=== PATIENT | female | born 1960 | race Caucasian/White ===

== ENCOUNTER → 2018-12-24 | Outpatient (CLI) | payer MEDICARE ==
--- NOTE | 2018-12-24 11:21 | PCVCIMAG ---
EXAM: AORTOILIAC DUPLEX INDICATION: Palpable abdominal fullness. Aortic calcifications. FINDINGS: AORTA: Suprarenal aorta measures maximum diameter of 1.9 cm. There is not a fusiform infrarenal aortic aneurysm. The infrarenal aorta measures maximum diameter of 1.5 cm. No aortic stenosis. RIGHT COMMON ILIAC ARTERY: Maximum diameter is 0.7 cm. No significant stenosis. RIGHT EXTERNAL ILIAC ARTERY: No significant stenosis. LEFT COMMON ILIAC ARTERY: Maximum diameter is 0.6 cm. No significant stenosis. LEFT EXTERNAL ILIAC ARTERY: No significant stenosis. IMPRESSION: No abdominal aortic aneurysm. No aortoiliac stenosis seen. LOC:[id number]
== END | disposition home or self-care (01) ==
LOC: PCVCIMAG 10:11
PROVIDERS: ATTEND Nuclear Medicine Nuclear Cardiology
DX: I70.0 Atherosclerosis of aorta (principal); I72.9 Aneurysm of unspecified site; I10 Essential (primary) hypertension; E78.00 Pure hypercholesterolemia, unspecified; N20.0 Calculus of kidney; R07.89 Other chest pain; M79.604 Pain in right leg; M79.605 Pain in left leg; E78.5 Hyperlipidemia, unspecified; I71.4 Abdominal aortic aneurysm, without rupture; Z88.0 Allergy status to penicillin; Z88.8 Allergy status to other drugs, medicaments and biological substances; Z87.891 Personal history of nicotine dependence; Z79.899 Other long term (current) drug therapy; Z90.710 Acquired absence of both cervix and uterus
CPT/HCPCS: 93978; G0463

== ENCOUNTER → 2019-02-02 | Outpatient (CLI) | payer MEDICARE ==
--- NOTE | 2019-02-02 15:28 | PCVCIMAG ---
APPROVED REPORT Imaging Protocol: Rest Tc-99m/Stress Tc-99m 1 day Study performed: 02/02/2019 11:59:41 Indication: Chest pain, Dyspnea, Pseudoxanthoma Elasticum Patient Location: Out-Patient Stress Nurse: Misty Archer RN, BLAISE Conte Tech:[place]ouard SHAHEEN Oconnor Ht: 5 ft 3 in Wt: 138 lbs BSA: 1.65 m2 HR: 83 bpm BP: 148/75 mmHg BMI: 24.44 Rhythm: Sinus Rhythm Medical History Medical History: Age, Hyperlipidemia, HTN, Former Smoker Medications: Norvasc, Zocor, Ultram, Laura, Prozac Allergies: ASA, PCN Exercise History: Sedentary Resting Data Rest SPECT myocardial perfusion imaging was performed in supine position 45 minutes following the intravenous injection of 11.3 mCi of Tc-99m Sestamibi. Time of rest injection: 1200 Date: 02/02/2019 Administration Route: IV Administration Site: Right AC Pharmacologic Stress Pharmacologic stress test was performed by injecting Regadenoson 0.4 mg IV push over 10-15 seconds immediately followed by the intravenous injection of 36 mCi of Tc-99m Sestamibi. Time of stress injection: 1315 Date: 02/02/2019 Administration Route: IV Administration Site: Right AC Gated Stress SPECT was performed 45 minutes after stress injection. The images were gated to evaluate regional wall motion and calculate left ventricular ejection fraction. Stress Test Details Stress Test: Exercise stress testing was performed using a Ronnie protocol. HRMax Heart Rate (APMHR): 162 bpm Resting HR: 83 bpmTarget HR (85% APMHR): 137 bpm Max HR Achieved: 148 bpm % of APMHR: 91 Recovery HR: 90 bpm BP Resting BP: 148/75 mmHg Max BP: 188/90 mmHg Recovery BP: 140/67 mmHg ECG Resting ECG: Sinus Rhythm Stress ECG: Sinus Tachycardia ST Change: Non-ischemic Arrhythmia: None Recovery ECG: Sinus Rhythm Clinical Reason for Termination: Maximal effort, Fatigue, Dyspnea Stress Symptoms: Dyspnea Symptoms resolved during recovery. Study Quality Study: Good Study Data Post stress, the left ventricular ejection was 84%.. SSS: 0 SRS: 0 SDS: 0 TID = 0.75. Perfusion Normal left ventricular perfusion. Normal perfusion on both the stress and rest images. Wall Motion Normal left ventricular wall motion. Nuclear Conclusion ECG Findings: negative for ischemia Clinical Findings: negative for ischemia Nuclear Findings: negative for ischemia Exercise Capacity: normal Left Ventricular Function: normal Risk Study: low This study is of low probability for inducible ischemia or prior infarct. Normal global and segmental LV systolic function.
--- NOTE | 2019-02-02 17:28 | PCVCIMAG ---
APPROVED REPORT Study performed: 02/02/2019 16:26:26 EXAM: Comprehensive 2D, Doppler, and color-flow Echocardiogram Patient Location: Echo lab Status: routine BSA: 1.62 HR: 77 bpmBP: 150/80 mmHg Rhythm: NSR Other Information Study Quality: Good Risk Factors: Cardiac Risk Factors: HTN, Hyperlipidemia Indications CAD PAD 2D Dimensions IVSd: 9.45 (7-11mm)LVOT Diam: 17.27 (18-24mm) LVDd: 39.71 mm PWd: 8.94 (7-11mm)Ascending Ao: 32.07 (22-36mm) LVDs: 25.75 (25-40mm) Left Atrium: 36.08 (27-40mm) Aortic Root: 33.21 mm LV Single Plane 4CH: 63.25 % LV Single Plane 2CH: 67.16 % Biplane EF: 67.3 % Volumes Left Atrial Volume (Systole) Single Plane 4CH: 22.76 mLSingle Plane 2CH: 23.35 mL LA ESV Index: 15.00 mL/m2 Aortic Valve AoV Peak Yayo.: 1.03 m/s AO Peak Gr.: 4.20 mmHgLVOT Max P.99 mmHg LVOT Max V: 1.00 m/s CHARISSA Vmax: 2.28 cm2 Mitral Valve E/A Ratio: 0.6 MV Decel. Time: 226.63 ms MV E Max Yayo.: 0.59 m/s MV A Yayo.: 1.01 m/s TDI E/Lateral E': 8.43E/Medial E': 11.80 Medial E' Yayo.: 0.05 m/s Lateral E' Yayo.: 0.07 m/s Pulmonary Valve PV Peak Gr.: 2.34 mmHg Pulmonary Vein P Vein S: 0.63 m/sP Vein A: 0.44 m/s P Vein D: 0.31 m/sP Vein A Dur.: 79.6 msec P Vein S/D Ratio: 2.03 Tricuspid Valve TR Peak Yayo.: 1.88 m/s TR Peak Gr.: 14.16 mmHg Left Ventricle The left ventricle is normal size. There is normal LV segmental wall motion. Mild concentric left ventricular hypertrophy. Left ventricular systolic function is normal. The left ventricular ejection fraction is within the normal range. LVEF is 55-60%. The left ventricular diastolic function is normal. Right Ventricle The right ventricle is normal size. The right ventricular systolic function is normal. Atria The left atrium size is normal. The right atrium size is normal. Aortic Valve The aortic valve is normal in structure. No aortic regurgitation is present. There is no aortic valvular stenosis. Mitral Valve The mitral valve is normal in structure. There is no mitral valve regurgitation noted. No evidence of mitral valve stenosis. Tricuspid Valve The tricuspid valve is normal in structure. Trace tricuspid regurgitation. Pulmonic Valve The pulmonary valve is normal in structure. There is no pulmonic valvular regurgitation. Great Vessels The aortic root is normal in size. IVC is normal in size and collapses >50% with inspiration. Pericardium There is no pericardial effusion. <Conclusion> The left ventricle is normal size. Mild concentric left ventricular hypertrophy. LVEF is 55-60%. The left ventricular diastolic function is normal. The left atrium size is normal. The aortic valve is normal in structure. There is no mitral valve regurgitation noted. Trace tricuspid regurgitation. The aortic root is normal in size. There is no pericardial effusion.
--- NOTE | 2019-02-02 17:45 | PCVCIMAG ---
EXAM: BILATERAL LOWER EXTREMITY ARTERIAL DUPLEX INDICATION: Peripheral Arterial Disease. Leg pain. FINDINGS: Right Leg: Satisfactory arterial waveforms throughout the common/profunda/superficial femoral, popliteal, anterior tibial, peroneal, and posterior tibial arteries. No flow limiting stenosis seen. Left Leg: Common femoral profunda femoral arteries are patent. Complete occlusion in the mid and distal [place] superficial femoral artery. Popliteal artery refills and is patent throughout. The anterior tibial, peroneal, and posterior tibial arteries are patent. IMPRESSION: No flow limiting stenosis in the right lower extremity. Complete occlusion mid/distal [place] left superficial femoral artery. LOC:OFFICE
== END | disposition home or self-care (01) ==
LOC: PCVCIMAG 10:44
PROVIDERS: ATTEND Internal Medicine Cardiovascular Disease
DX: I73.9 Peripheral vascular disease, unspecified (principal); I25.10 Atherosclerotic heart disease of native coronary artery without angina pectoris; I10 Essential (primary) hypertension; E78.00 Pure hypercholesterolemia, unspecified; Z87.891 Personal history of nicotine dependence
CPT/HCPCS: 36415; 78452; 80061; 93017; 93306; 93925; A9500; G0463

== ENCOUNTER → 2019-03-09 | Outpatient (CLI) | payer MEDICARE ==
--- NOTE | 2019-03-09 11:13 | PCVCIMAG ---
EXAM: LEFT LOWER EXTREMITY ARTERIAL DUPLEX INDICATION: Peripheral Arterial Disease. Leg pain. FINDINGS: Left Leg: Common femoral profunda femoral arteries are patent. Superficial femoral artery and popliteal artery are patent. The anterior tibial and peroneal arteries are patent. Occlusion throughout the posterior tibial artery. IMPRESSION: Occlusion throughout the left posterior tibial artery. Otherwise no flow limiting stenosis in the left lower extremity. Previous site of intervention throughout the left superficial femoral artery remain patent. LOC:[id number]
== END | disposition home or self-care (01) ==
LOC: PCVCIMAG 08:43
PROVIDERS: ATTEND Nuclear Medicine Nuclear Cardiology
DX: I70.202 Unspecified atherosclerosis of native arteries of extremities, left leg (principal); Z88.0 Allergy status to penicillin; Z88.6 Allergy status to analgesic agent
CPT/HCPCS: 93926; G0463

== ENCOUNTER → 2019-05-26 | Outpatient (CLI) | payer MEDICARE ==
--- NOTE | 2019-05-26 18:38 | PCVCIMAG ---
EXAM: BILATERAL LOWER EXTREMITY ARTERIAL DUPLEX INDICATION: Peripheral Arterial Disease. Leg pain. FINDINGS: Right Leg: Common femoral and profunda femoral arteries are patent. 50% stenosis distal [place] superficial femoral artery. Popliteal artery is patent. Anterior tibial and peroneal arteries are patent. Posterior tibial arteries occluded. Left Leg: Common femoral and profunda femoral arteries are patent. Superficial femoral artery and popliteal artery are patent. Occlusion mid/distal posterior tibial artery. The anterior tibial and peroneal arteries are patent. IMPRESSION: 50% stenosis distal [place] right superficial femoral artery. Left superficial femoral and popliteal arteries are patent. Unchanged occlusion of the right and left posterior tibial arteries. LOC:[id number]
--- NOTE | 2019-05-26 18:39 | PCVCIMAG ---
EXAM: BILATERAL CAROTID DUPLEX INDICATION: Carotid Occlusive Disease. FINDINGS: Doppler Measurements (centimeters per second): RIGHT: Peak CCA-49, Peak ECA-69, Diastolic ICA-22, Peak ICA-7, ICA/CCA Ratio-1.4. LEFT: Peak CCA-54, Peak ECA-82, Diastolic ICA-28, Peak ICA-73, ICA/CCA Ratio-1.4. RIGHT CAROTID: The carotid bulb has moderate plaque. The proximal internal carotid artery shows <40% stenosis. The common carotid artery shows no significant stenosis. The external carotid artery shows no significant stenosis. LEFT CAROTID: The carotid bulb has moderate plaque. The proximal internal carotid artery shows <40% stenosis. The common carotid artery shows no significant stenosis. The external carotid artery shows no significant stenosis. Antegrade flow in both vertebral arteries. IMPRESSION: <40% stenosis of the right internal carotid artery with moderate plaque. <40% stenosis of the left internal carotid artery with moderate plaque. LOC:[id number]
== END | disposition home or self-care (01) ==
LOC: PCVCIMAG 09:48
PROVIDERS: ATTEND Nuclear Medicine Nuclear Cardiology
DX: I65.23 Occlusion and stenosis of bilateral carotid arteries (principal); I73.9 Peripheral vascular disease, unspecified; R09.89 Other specified symptoms and signs involving the circulatory and respiratory systems; Z88.0 Allergy status to penicillin; Z88.8 Allergy status to other drugs, medicaments and biological substances
CPT/HCPCS: 93880; 93925

== ENCOUNTER → 2019-06-01 | Outpatient (CLI) | payer MEDICARE | END | disposition home or self-care (01) | LOC: PCVCCLINIC 09:00 | PROVIDERS: ATTEND Nuclear Medicine Nuclear Cardiology | DX: I73.9 Peripheral vascular disease, unspecified (principal); I25.10 Atherosclerotic heart disease of native coronary artery without angina pectoris; I10 Essential (primary) hypertension; E78.5 Hyperlipidemia, unspecified; Z87.891 Personal history of nicotine dependence | CPT/HCPCS: G0463 ==